=== PATIENT | female | born 1985 | race Caucasian/White ===

== ENCOUNTER → 2020-04-02 | Outpatient (CLI) | payer OTHER, SELFPAY ==
[2015-03-19 10:17] VITALS: BMI 33.9
[2020-04-06 21:25] LABS: HPV APTIMA, High Risk Negative (Negative); HPV Reflexed? YES, CHARGE PATIENT
== END | disposition home or self-care (01) ==
LOC: LABSPEC 15:39
PROVIDERS: Visit Provider Student in an Organized Health Care Education/Training Program
DX: Z12.4 Encounter for screening for malignant neoplasm of cervix (principal)
CPT/HCPCS: 87624; 88175; G0145

== ENCOUNTER → 2021-04-11 14:18 | Outpatient (CLI) | payer OTHER, SELFPAY ==
[2021-04-16 04:29] LABS: Chlamydia By Nucleic Acid AMP Negative (Negative)
[2021-04-16 14:48] LABS: Gonococcus By Nucleic Acid AMP Negative (Negative)
== END ==
PROVIDERS: Visit Provider Obstetrics & Gynecology
DX: Z34.81 Encounter for supervision of other normal pregnancy, first trimester (principal); Z11.3 Encounter for screening for infections with a predominantly sexual mode of transmission
CPT/HCPCS: 87491; 87591

== ENCOUNTER → 2021-05-02 14:32 | Outpatient (CLI) | payer OTHER, SELFPAY ==
[2021-05-02 15:36] LABS: Color, Urine Yellow (Yellow); Glucose, Dipstick Normal (Normal); Ketone-Dipstick 5 mg/dl (Negative); Leukocyte Esterase-Dipstick Negative /ul (Negative); Nitrite-Dipstick Negative (Negative); Occult Blood-Urine Negative /ul (Negative); Protein-Dipstick 15 mg/dl (Negative); Specific Gravity, Urine 1.025 (1.002-1.030); Urine Bilirubin Dipstick Negative (Negative); Urine Clarity Clear (Clear); Urine Urobilinogen 1 mg/dl (Normal)
[2021-05-02 15:38] LABS: Absolute Lymphocyte Count 2.68 X10^3/uL (0.83-4.51); Basophil# 0.04 X10^3/uL; Basophil% 0.4 % (0-1); Eosinophil# 0.13 X10^3/uL; Eosinophils% 1.2 % (0-5); Hemoglobin 14.3 g/dL (12.0-15.0); Lymphocyte # 2.68 X10^3/ul (0.83-4.51); Lymphocyte % 25.5 % (19-41); Mean Corpuscular Hgb 28.5 pg (27.0-32.0); Mean Corpuscular Volume 83.7 fL (81-99); Monocyte# 0.58 X10^3/uL; Monocyte% 5.5 % (0-10); NRBC Flagged by Analyzer 0 % (0-5); Neutrophil # 7.04 X10^3/uL (2.7-7.7); Platelet Count 269 K/mm3 (150-450); RBC Distribution Width CV 13.2 % (11.6-14.6); RBC Distribution Width SD 40.3 fl (35.1-43.9); Red Blood Count 5.02 M/mm3 (4.2-5.4); White Blood Count 10.5 K/mm3 (4.4-11.0)
[2021-05-02 16:22] LABS: Thyroid Stim Hormone (TSH) 0.79 uIU/mL (0.358-3.74)
[2021-05-03 08:11] LABS: HIV - WCH Non-Reactive (Nonreactive); Hepatitis B Surface Antigen Non-Reactive (Nonreactive); Hepatitis C Antibody Non-Reactive (Nonreactive); Rubella IgG Reactive (Nonreactive); Syphilis Antibodies Non-reactive; Vitamin D,25 Hydroxy 61.9 ng/mL
== END ==
PROVIDERS: Visit Provider Obstetrics & Gynecology
DX: Z34.81 Encounter for supervision of other normal pregnancy, first trimester (principal)
CPT/HCPCS: 36415; 81002; 82306; 84443; 85025; 86703; 86762; 86780; 86803; 87086; 87088; 87340

== ENCOUNTER → 2021-06-27 | Outpatient (CLI) | payer OTHER, SELFPAY ==
[2021-06-27 14:24] LABS: Thyroid Stim Hormone (TSH) 1.03 uIU/mL (0.358-3.74)
== END | disposition home or self-care (01) ==
LOC: LABSPEC 13:37
PROVIDERS: Visit Provider Student in an Organized Health Care Education/Training Program
DX: Z34.82 Encounter for supervision of other normal pregnancy, second trimester (principal); E03.9 Hypothyroidism, unspecified
CPT/HCPCS: 84439; 84443

== ENCOUNTER 2021-09-11 14:13 | Outpatient (CLI) | payer OTHER, SELFPAY ==
[2021-09-11 16:08] LABS: Hematocrit 34.4 % (37-47); Hemoglobin 11.3 g/dL (12.0-15.0); Mean Corp Hgb Conc 32.8 g/dL (32-36); Mean Corpuscular Hgb 27.6 pg (27.0-32.0); Mean Corpuscular Volume 84.1 fL (81-99); Platelet Count 272 K/mm3 (150-450); RBC Distribution Width CV 13.2 % (11.6-14.6); RBC Distribution Width SD 40.2 fl (35.1-43.9); Red Blood Count 4.09 M/mm3 (4.2-5.4); White Blood Count 9.1 K/mm3 (4.4-11.0)
[2021-09-11 16:32] LABS: Glucose Challenge Gest 1H 50g 145 mg/dL (70-140); Thyroid Stim Hormone (TSH) 0.72 uIU/mL (0.358-3.74)
== END 2021-09-11 23:59 | disposition home or self-care (01) ==
LOC: WOBLAB 14:15
PROVIDERS: Visit Provider Obstetrics & Gynecology
DX: Z34.82 Encounter for supervision of other normal pregnancy, second trimester (principal)
CPT/HCPCS: 36415; 82950; 84443; 85027

== ENCOUNTER → 2021-11-14 | Outpatient (CLI) | payer OTHER, SELFPAY | END | disposition home or self-care (01) | LOC: LABSPEC 16:20 | PROVIDERS: Visit Provider Obstetrics & Gynecology | DX: Z36.85 Encounter for antenatal screening for Streptococcus B (principal) | CPT/HCPCS: 87081 ==

== ENCOUNTER 2021-12-04 05:30 | Inpatient (IN) | payer OTHER, SELFPAY ==
--- NOTE | 2021-12-02 16:27 | PCM.HP.BLA ---
History and Physical Date of Admission: 12/04/21 ACOG ANTEPARTUM RECORD - HISTORY AND PHYSICAL (12/02/2021) Name: BETTY ALLAN History of this : This is a 35 year old [id number] presents at 39 wks + 0 days gestation for repeat with bilateral salpingectomy. 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 : 1985 Age: 35 Address: [address] [place] [address] Phone: H) [phone] (O) [phone] Insurance Carrier: [employer] [id number] Emergency Contact: BAILEY ALLAN/ [phone] ...................................................................... Final MARYELLEN: 12/11/21 By Ultrasound: 5 weeks 1 day PARITY: (G-Total Pregnancies P-Fullterm,Premature,Induced AB,Spont AB, Ectopics, Multiple,Living) MARYELLEN CONFIRMATION: By LMP: 03/26/20 Initial Exam: 12/11/21 By First Ultrasound Exam: 12/11/21 Final MARYELLEN: 12/11/21 OB PROBLEM LIST: AMA, declines genetic and carrier screening GDM 2nd and 3rd --1 hr PG 145 and declines 3 hour; presumed GDM; try diet control hypothyroidism Pumping/ planned rods/pins C3-lumbar region of back, scoliosis hx general anesthetic with initial C/S d/t this Takes Sertraline, EPDS today = 0 This will be her 4th -- Plans RCS with tubal ALLERGIES: ? antibiotic Hives Adhesive Tape Rash Latex Hives and/or rash NKDA No Known Allergies No Known Drug Allergies Shellfish Face, lips swelling Shellfish Derived Facial swelling Tomatoes Hives Tree nuts Hives Wheat Hives MEDICATIONS: sertraline 25 mg tablet One tablet by mouth daily Synthroid 25 mcg tablet One pill by mouth once a day Vitafol Gummies 3.33 mg iron-0.33 mg chewable tablet One by mouth three times a day Vitamin D2 1,250 mcg (50,000 unit) capsule One capsule by mouth weekly SOCIAL HISTORY: Smoking - used to smoke but quit and quit 10 y ago Alcohol Use - RARELY not while Diet - moderate, balanced diet Lifestyle - low stress lifestyle and Exercise - active 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 Illicit Drug Use - denies use of street drugs Sexual Activity - Residence - lives with Place of - [place], [place] Spouse-Sig Other Name - Bailey Allan Spouse-Sig Other Occupation - [employer] - marti dispatcher; 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 Spouse-Sig Other Phone No - [phone] cell Children Name(s) - Varsha Johnson [place] PRIOR DELIVERY HISTORY DEL DATE GEST LAB WT LB WT OZ TYPE ANES LABOR TX 02 Apr 03 39 0 8 3 C-Sec Spinal No Oct 30 39 0 8 9 C-Sec Spinal No Dec 24 39 0 8 3 C-Sec General No ANTEPARTUM FLOW CHART VISIT GE RTC FU F F WA U U DATE WK MD WKS HT PN HR M SS BP ED WT WA GL D EF ST __ ____ ___ __ __ ___ __ __ __ ___ __ __ __ ___ __ 11 November JMW 3 38 + + 124/72 205 ne ne November JMW 1 38 R de 118/76 1+ 208 - - Oct JMW 1 36 V + + 112/72 1+ 205 tr - cl 50 hi Oct JMW 1 35 + + 126/78 1+ 202 1+ - Sep JMW 2 32 + + 120/74 0 198 tr - Oct 17 JMW 2 31 + + 130/78 0 200 tr ne Sep 15 JMW 3 27 + + 118/70 0 199 - - Aug 08 JMW 4 20 + + 120/68 194 ne ne Jul 04 CM 4 + + 116/78 196 tr - 18 Jun 01 JMW 4 + ? 128/72 0 195 tr - 14 Apr 26 JMW 4 U+ ? 126/78 0 196 - - ANTEPARTUM NOTE(S): Nov 27 2021: C/O Headache, FM well, Consent signed Nov 20 2021: Doing Well Nov 14 2021: GBS, Declined LARC., Good FM Nov 07 2021: reactive NST, no bleeding Oct 17 2021: see note, Good FM Oct 10 2021: FBS OK; PPs all mildly elevated; diabetic ed Sep 11 2021: One Hr PG today Jul 25 2021: FM well, Nausea thinks it is from sinus drainage. Jun 27 2021: still dealing with am nausea Jun 06 2021: Occasional Nausea May 02 2021: Panel drawn today w/Vit D Level COMPREHENSIVE ANTEPARTUM NOTE(S): Nov 20 2021: Betty is here for a NST at 37 w 0 d. She reports that she woke up in a panic this morning and I just don't feel right. Decreased FM today. She also reportsthat for several weeks she has been itching mostly only at night; she states no rashes and that the areas that itch are bottoms of her feet, her calves, inner knees, and half of her thighs. She denies spotting/LoF/cramping. 1+ pitting e Nov 19 2021: H taken to OB. tkg Nov 14 2021: Betty is here for her PNV at 36 w 1 d. She states that she feels okay. She notes good FM. Betty denies spotting/LoF/cramping. 1+ pitting edema noted below knees. She denies visual changes, headaches. She has been having so much heartburn. Right upper quadrant discomfort continue intermittently; she states not any worse than last week. LARC declined, consent signed. She plans to have a Nov 07 2021: Betty is 35w1d here for PNV decreased FM 1+ edema in hands. C/O zigzag in her vision last night. Headache for 24hrs. Ran out of glucose testing strips [facility]nt [facility]. Will go buy more. [place] better after water and a bath. Has only felt baby move once today. She is on the NST now. BR Nov 07 2021: NST reactive, read per Dr. Khan. Several FM noted per Betty. AW Oct 17 2021: Betty is here for visit. She is doing well, no complaints or concerns. Reviewed FM, PTL, PROM. Encouraged Tdap vaccine. Blood sugars on phone for Dr Khan review. LMT Oct 10 2021: Betty had a PNV with Dr. Khan today, she had GDM, and at this time she is not on medication for same. Her FBS are all with range, but her 2 hr pp lunch and dinner are routinely in the 140's. He requests that RN speak with Betty about her diet, and see if any changes can be made to help bring her pp blood sugars back into expected range. Betty is to keep checking her blood sugars, then r Sep 11 2021: Betty is 27weeks. Good edema no swelling. States she has been getting headaches but feels better if she lies down. BR Jun 27 2021: Betty is here for visit. She relates that she is still sick every morning until noon. She has significant side effects from all meds and uncertain if she is willing to try anything that might make her feel drowsy all day. Could try Unisom 1/2 at hs? Labs today for thyroid. LMT Jun 27 2021: 16/1w visit. Nausea - persistent in mornings. Declines medications. Discussed seabands. AMA - recommend growth us 36w and weekly NSTs at 36w. Hypothyroidism - TSH/Free T4 today. Continue synthroid. F/u 4w anatomy and PNV. CM Jun 06 2021: Betty is here for her NOB visit, she will see Dr. Khan for a PNV after NOB. She is a 35 year old with an MARYELLEN of 12/11/2021, current GA is 13 w 1 d. Betty resides with her , Bailey, and their three children; all of her children were delivered by C/S. Betty plans to have a repeat C/S with BTL at [facility], and she states that she usually pumps and feeds the baby pumped breast milk, o May 02 2021: Betty here for fu from miscarriage. . Non smoker Denies pain and bleeding or other concerns since procedure. Medications and allergy update. PHQ-2 score of 0. May 02 2021: Betty is here for her NOB consent visit at 8 w 1 d. She reports nausea when she brushes her teeth and with sinus drainage. This is her 4th , she has two girls and one boy, all delivered by C/S. She plans a repeat C/S at [facility]. Past history updated. Betty is AMA, no other significant family history noted on Genetics Screening form. She declines carrier screening, and is undec REVIEW OF SYSTEMS: GENERAL - Denies fever, or chills SKIN - Denies rash, new skin lesions, or change in moles EYES - Denies blurred vision, or change in visual acuity EARS - Denies ear pain, or difficulty hearing NOSE - Denies nasal congestion, discharge, or bleeding MOUTH - Denies sore throat, or difficulty swallowing NECK - Denies pain or swelling RESPIRATORY - Denies shortness of breath, cough, wheezing CARDIOVASCULAR - Denies palpitations, chest pain, orthopnea, PND, peripheral edema, syncope or claudication GASTROINTESTINAL - Denies nausea, vomiting, diarrhea, constipation, Denies abdominal pain, melena and or bright red blood GENITOURINARY - Denies dysuria, frequency of urination, urgency, or hesitancy MUSCULOSKELETAL - Denies joint or muscle pain, or back pain NEUROLOGICAL - Denies localized numbness, weakness, or tingling PSYCHIATRIC - Denies depression, anxiety, substance abuse or suicide attempts ENDOCRINE - Denies heat or cold intolerance, weight loss or gain, increasing thirst HEMATO-IMMUNOLOGIC - Denies easy bruising, bleeding, oral ulcerations or recurrent infections GENETICS SCREENING: Age 35+ years: Yes Thalassemia: No Neural Tube Defect: No Down Syndrome: No STEPHIE-SACHS: No Sickle Cell Disease: No Hemophilia: No Musc. Dystrophy: No Cystic Fibrosis: No-declines screening [place] Chorea: No Mental Retardation: No Fragile X: No Other genetic: No Other defects: No SABs/still births: No Drugs since LMP: Yes, synthroid INFECTION HISTORY: High risk AIDS: No High risk Hepatitis: No Exposed to TB: No Exposed to Herpes: No Rash/viral illness since LMP: No History of STD: No MENSTRUAL HISTORY: *Menses Amount/Duration: 5 daysMenses Regularity: missed periodsBCP's at Conception: No* PAST SUMMARY: PARITY: 1. Total Pregnancies............ 4 2. Full Term Pregnancies........ 3 3. Premature.................... 0 4. Abortions - Induced.......... 0 5. Abortions - Spontaneous...... 0 6. Ectopics..................... 0 7. Multiple Births.............. 0 8. Living Children.............. 3 PAST #1: Date of :.................. 12/29/06 Gestation Weeks:................ 39 Length of labor(hours):......... 0 Sex:............................ F Weight-lbs:............... 8 Weight-oz:................ 3 Type of Delivery:............... C-Sect Type of Anesthesia:............. General Place of Delivery:.............. [facility] Treatment of Labor?:.... No Comment: PAST #2: Date of :.................. 10/27/12 Gestation Weeks:................ 39 Length of labor(hours):......... 0 Sex:............................ F Weight-lbs:............... 8 Weight-oz:................ 9 Type of Delivery:............... C-Sect Type of Anesthesia:............. Spinal Place of Delivery:.............. [facility] Treatment of Labor?:.... No Comment: [facility]. PAST #3: Date of :.................. 03/21/15 Gestation Weeks:................ 39 Length of labor(hours):......... 0 Sex:............................ M Weight-lbs:............... 8 Weight-oz:................ 3 Type of Delivery:............... C-Sect Type of Anesthesia:............. Spinal Place of Delivery:.............. [facility] Treatment of Labor?:.... No Comment: GDM PHYSICAL EXAMINATION General Appearence: 35 yo female in no acute distress Vital Signs: AF, VSS Heart: RRR without rubs or gallops Lungs: CTA x 2 Breasts: deferred Abdomen: gravid Pelvis: Cervix: Presentation: cephalic Station: Fetus: Size: AGA Movement: present Heart: present LAB TEST(S) ORDERED SINCE:03/16/21 06/27/2021 THYROID STIM HORMONE (TSH) 06/27/2021 T4 FREE DIRECT 05/04/2021 URINE CULTURE 05/03/2021 VITAMIN D,25 HYDROXY 05/03/2021 RUBELLA IGG 05/03/2021 L509.8000 05/03/2021 HIV - [facility] 05/03/2021 HEPATITIS C ANTIBODY 05/03/2021 HEPATITIS B SURFACE ANTIGEN 05/02/2021 URINALYSIS, ROUTINE (DIPSTICK) 05/02/2021 THYROID STIM HORMONE (TSH) 05/02/2021 T AND S-NO CHARGE W/PNP 05/02/2021 CBC W/DIFF, AUTOMATED 04/16/2021 CHLAMYDIA/GC WALESKA APTIMA 11/17/2021 RULE OUT BETA STREP (GRP. B) 09/11/2021 THYROID STIM HORMONE (TSH) 09/11/2021 GLUCOSE CHALLENGE GEST 1H 50G 09/11/2021 CBC-COMPLETE BLOOD CNT NO DIFF == ==== Order Observation Description Value Ref_Range A* Site == ==== RULE OUT BETA S NOTE LOVING THYROID STIM HO NOTE LOVING THYROID STIM HO TSH 0.72 uIU/mL 0.358-3.74 ML GLUCOSE CHALLEN NOTE LOVING GLUCOSE CHALLEN GLU GEST 50G 1H 145 mg/dL 70-140 H ML CBC-COMPLETE BL NOTE LOVING CBC-COMPLETE BL WBC 9.1 K/mm3 4.4-11.0 ML CBC-COMPLETE BL RBC 4.09 M/mm3 4.2-5.4 L ML CBC-COMPLETE BL HGB 11.3 g/dL 12.0-15.0 L ML CBC-COMPLETE BL HCT 34.4 37-47 L ML CBC-COMPLETE BL MCV 84.1 fL 81-99 ML CBC-COMPLETE BL MCH 27.6 pg 27.0-32.0 ML CBC-COMPLETE BL MCHC 32.8 g/dL 32-36 ML CBC-COMPLETE BL RDW CV 13.2 11.6-14.6 ML CBC-COMPLETE BL RDW SD 40.2 fl 35.1-43.9 ML CBC-COMPLETE BL PLT 272 K/mm3 150-450 ML CBC-COMPLETE BL MPV 10.0 fl 6.2-12.0 ML T4 FREE DIRECT NOTE LOVING T4 FREE DIRECT T4 FREE DIRECT 0.90 ng/dL 0.76-1.46 ML THYROID STIM HO NOTE LOVING THYROID STIM HO TSH 1.03 uIU/mL 0.358-3.74 ML URINE CULTURE NOTE LOVING HEPATITIS C ANT NOTE LOVING HEPATITIS C ANT HEPATITIS C AB Non-Reactive Nonreactive ML Non Reactive: < 0.8 Equivocal: >/= 0.8 to < 1.0 Reactive: >/= 1.0 The CDC recommends that a reactive/equivocal HCV antibody result be followed up by the HCV Nucleic Acid Amplification test ([id number]) HEPATITIS B TWYLA NOTE LOVING HEPATITIS B TWYLA HEP B SURF AG Non-Reactive Nonreactive ML HIV - [facility] NOTE LOVING HIV - [facility] HIV Non-Reactive Nonreactive ML L509.8000 NOTE LOVING L509.8000 SYPHILIS ABS Non-reactive ML RUBELLA IGG NOTE LOVING RUBELLA IGG RUBELLA IGG Reactive Nonreactive ML Antibody Results Interpretation of Immune Status Non Reactive Presumed Non-Immune Equivocal Equivocal Reactive Presumed Immune VITAMIN D,25 HY NOTE LOVING VITAMIN D,25 HY VITAMIN D 25-OH 61.9 ng/mL ML Vitamin D 25(OH) Status Range Deficiency <20 ng/mL (50nmol/L) Insufficiency 20 - 30 ng/mL (50 - 75 nmol/L) Sufficiency 30 - 100 ng/mL (75 - 250 nmol/L) Toxicity >100 ng/mL (>250 nmol/L) PN N [facility]~[address] [place], [address]~ T AND AB SCREEN GEL NEGATIVE ML THYROID STIM HO NOTE LOVING THYROID STIM HO TSH 0.79 uIU/mL 0.358-3.74 ML CBC W/DIFF, AUT NOTE LOVING CBC W/DIFF, AUT WBC 10.5 K/mm3 4.4-11.0 ML CBC W/DIFF, AUT RBC 5.02 M/mm3 4.2-5.4 ML CBC W/DIFF, AUT HGB 14.3 g/dL 12.0-15.0 ML CBC W/DIFF, AUT HCT 42.0 37-47 ML CBC W/DIFF, AUT MCV 83.7 fL 81-99 ML CBC W/DIFF, AUT MCH 28.5 pg 27.0-32.0 ML CBC W/DIFF, AUT MCHC 34.0 g/dL 32-36 ML CBC W/DIFF, AUT RDW CV 13.2 11.6-14.6 ML CBC W/DIFF, AUT RDW SD 40.3 fl 35.1-43.9 ML CBC W/DIFF, AUT PLT 269 K/mm3 150-450 ML CBC W/DIFF, AUT MPV 10.0 fl 6.2-12.0 ML CBC W/DIFF, AUT NEUT% 67.0 47-70 ML CBC W/DIFF, AUT LY% 25.5 19-41 ML CBC W/DIFF, AUT MONO% 5.5 0-10 ML CBC W/DIFF, AUT EO% 1.2 0-5 ML CBC W/DIFF, AUT BASO% 0.4 0-1 ML CBC W/DIFF, AUT IG% 0.400 0.0-0.9 ML IG% - Immature Granulocytes (promyelocytes, myelocytes and metamyelocytes) > 1% indicates that a LEFT SHIFT is Present. CBC W/DIFF, AUT ABSOLUTE NEUT 7.0 X10 3/uL 2.0-7.7 ML CBC W/DIFF, AUT ABSOLUTE LYMPH 2.68 X10 3/uL 0.83-4.51 ML CBC W/DIFF, AUT NUCLEATED RBC 0 0-5 ML URINALYSIS, ROU NOTE LOVING URINALYSIS, ROU COLOR Yellow Yellow ML URINALYSIS, ROU URINE CLARITY Clear Clear ML URINALYSIS, ROU GLUCOSE, UR Normal mg/dl Normal ML URINALYSIS, ROU BILIRUBIN URINE Negative mg/dL Negative ML URINALYSIS, ROU KETONE UR 5 mg/dl Negative A ML URINALYSIS, ROU SP.GR. DIPSTX 1.025 1.002-1.030 ML URINALYSIS, ROU PH UR 5.0 5.0 - 8.0 ML URINALYSIS, ROU PROT DIPSTX 15 mg/dl Negative A ML URINALYSIS, ROU UROBILI 1 mg/dl Normal A ML URINALYSIS, ROU NITRITE Negative Negative ML URINALYSIS, ROU OCCULT BLOOD-UR Negative /ul Negative ML URINALYSIS, ROU LEUK ESTERASE Negative /ul Negative ML CHLAMYDIA/GC NA NOTE LOVING CHLAMYDIA/GC NA CHLAMY,NUC ACID Negative Negative LCI CHLAMYDIA/GC NA GC BY NUC ACID Negative Negative LCI Performed at: =[address] [place] [id number] Inner Tube Cutter: Tamiko Deal MD, Phone: [phone] Group B Beta Streptococcus is not isolated. Mixed Gram Positive Organisms [place] Count 1000-10,000 MIXC Mixed contaminants. Submit a new specimen if indicated. O POSITIVE == ==== Impression /Plan: 39 wks + 0 days gestation for repeat with bilateral salpingectomy. Preparations in progress for delivery.
[2021-12-04] VITALS (21 sets, daily range): BP systolic 105–152; BP diastolic 55–89; PULSE 64–108; RESP 12–24; TEMP 35.8–36.6; O2SAT 94–100; BMI 36.8
--- NOTE | 2021-12-04 | FALS_PTH ---
PATIENT: BETTY HERMOSILLO LOC: [facility] U#:[id number] AGE/SX: 35/F ROOM: [facility] RE12/04/[address]: Dr. Burton Khan MD : 1985 BED: 1 DIS: 12/05/2021 SPEC #: [id number] RECD: 12/04/21 12:56 STATUS: HUBERT DAVISBharati #: [id number] MARIN: 12/04/21 00:[address]: Burton Khan DEPT: SURGICAL PATHOLOGY RECD BY: Catracho Hager Tissues: Fallopian tube Procedures: Surgery Specimen Level II HEADER OPERATION: Tubal ligation PRE-OP DIAGNOSIS: Sterilization TISSUE SUBMITTED: Fallopian tubes, tie on left tube MICROSCOPIC DIAGNOSIS Bilateral fallopian tubes, salpingectomy: Bilateral fallopian tubes, no pathologic diagnosis. VICKIE:carter 12/05/2021 MICROSCOPIC DESCRIPTION Slides are reviewed. GROSS DESCRIPTION Received in fixative is one container labeled with the patient's name and designated bilateral fallopian tubes, tie on left. The specimen consists of bilateral fallopian tubes including fimbrial ends. The right fallopian tube measures 9 cm in length and 1 cm in diameter and the left fallopian tube measures 6 cm in length and 1.2 cm in diameter. Sections reveal unremarkable cut surfaces. Mail Service Coordinator sections are submitted in two cassettes as follows: 1 ? right fallopian tube, 2 ? left fallopian tube. / SJ:rg 12/04/2021 TC:4 CPT: 43676 x2
[2021-12-04] MEDS: Lactated Ringers 1,000 ML 999 ML IV (05:50)
[2021-12-04 06:07] LABS: Absolute Lymphocyte Count 2.85 X10^3/uL (0.83-4.51); Basophil# 0.04 X10^3/uL; Basophil% 0.4 % (0-1); Eosinophils% 0.9 % (0-5); Hematocrit 32.2 % (37-47); Hemoglobin 9.8 g/dL (12.0-15.0); Lymphocyte # 2.85 X10^3/ul (0.83-4.51); Lymphocyte % 26.7 % (19-41); Mean Corp Hgb Conc 30.4 g/dL (32-36); Mean Corpuscular Hgb 23.1 pg (27.0-32.0); Mean Corpuscular Volume 75.9 fL (81-99); Mean Platelet Vol. 10.9 fl (6.2-12.0); Monocyte# 0.64 X10^3/uL; NRBC Flagged by Analyzer 0 % (0-5); Neutrophil # 7.01 X10^3/uL (2.7-7.7); Neutrophil % 65.5 % (47-70); Platelet Count 264 K/mm3 (150-450); RBC Distribution Width CV 15.1 % (11.6-14.6); RBC Distribution Width SD 41.3 fl (35.1-43.9); Red Blood Count 4.24 M/mm3 (4.2-5.4); White Blood Count 10.7 K/mm3 (4.4-11.0)
[2021-12-04] MEDS: Acetaminophen 500 MG Tablet 1000 MG PO ×3 (06:10→20:23)
[2021-12-04 06:16] LABS: Bedside Glucose 98 mg/dL (74-106)
[2021-12-04] MEDS: Lactated Ringers 1,000 ML 150 ML IV (06:52)
[2021-12-04] MEDS: Sodium Citrate/Citric Acid 30 ML UDC PO (07:17)
--- NOTE | 2021-12-04 07:33 | EX.PCM.OBRPT ---
Details Operative Information Date of Procedure: 12/04/21 Pre-Operative Diagnosis: Prior Section, Desires Permanent Sterilization Post-Operative Diagnosis: Prior Section, Desires Permanent Sterilization Classification: Scheduled Procedure Type: low transverse (and bilateral salpingectomy) car blocker #1: Jose Armando Garcia Type of Anesthesia: Spinal (With Duramorph) Anesthesiologist: Britney Valenzuela Antibiotic Given: Ancef 2 grams IV x1 Drain: Loera to straight drain Estimated Blood Loss: 500 cc Fluids Replaced: Crystalloid Findings Description of Procedure: Surgeon: Burton Khan MD, FACOG Procedure: Repeat Low Transverse Cervical Caesarean Section And Bilateral Salpingectomy Findings: Viable female infant with Apgars of 8/9 in occiput anterior presentation with clear amniotic fluid and normal three-vessel placenta. Indication: This is a 35-year-old who presents for her fourth at 39 weeks gestation. care has otherwise been uneventful. The patient has been counseled regarding the risk and indications of this procedure including the possibility of bleeding infection and injury to surrounding structures such as bowel bladder. She also understands the permanent nature of a salpingectomy, the availability of other nonpermanent control options, and the failure rate of 1 to 2%. All questions were answered. Procedure: Patient was taken to the operating room where after spinal anesthesia was placed, the patient was prepped and draped in usual sterile fashion and a Loera catheter was placed. The abdomen was entered through the patient's prior Pfannenstiel incision and peritoneum was entered bluntly. After developing a bladder flap on the lower uterine segment a low transverse incision was made on the uterus and head was easily delivered onto the operative field the nose mouth and oropharynx were bulb suctioned. Subsequently a viable female was born with Apgars of 8/9. The was noted to cry move all extremities vigorously on the operative field. The umbilical cord was doubly clamped and ligated and infant handed to the nursery personnel who were present for the delivery. Placenta was delivered and noted to be 3 vessels and normal. Uterus was exteriorized and remaining placental tissue was removed. The uterus was then closed in 2 layers first with running locked 0 Vicryl suture followed by a second imbricating layer with 0 Vicryl suture. 0 Vicryl suture was then used in a horizontal mattress interrupted fashion to affect final hemostasis of the uterine incision line. Normal fallopian tubes and ovaries were visualized and fallopian tubes were then removed using a LigaSure device to the uterus. The uterus was returned to the pelvis. Hemostasis was noted and rectus abdominis muscles were reapproximated in the midline with interrupted Number 0 Vicryl suture in a horizontal mattress fashion. Fascia was closed with running Number 1 PDS Strata fix suture. Subcutaneous tissue was irrigated with copious amounts of saline solution and then closed with running 3-0 Vicryl suture. Skin was closed with 4-0 monocryl suture in a running subcuticular fashion. Steri strips and a Mepilex dressing were placed across the incision. The patient tolerated the procedure well and was taken to the recovery room in satisfactory condition. Sponge, needle, and instrument counts were all reportedly correct. EBL was less than 500 cc. Ancef 2 gms IV was given prior to the procedure. Spicemen to Pathology: Bilateral fallopian tubes Complications: None Presentation: Positive for Vertex Amniotic Fluid Description: Clear Placental Delivery Description: Spontaneous Placenta Disposition: [facility] Specimen(s) Sent to Pathology: None Cord Vessel Description: 3 Vessels Cord Entanglement: None Infant A Gender: Female (1 minute): 8 (5 minute): 9 Complications Risks of Surgery Discussed w/Patient: Bleeding, Infection, Failure Rate of 1 to 2%, Injury to surrounding structure(s) including bowel and bladder and Availability of other non-permanent control options Complications: None
[2021-12-04] MEDS: Cefazolin 2 GM in 0.9% Normal Saline 100 ML IV (07:45)
[2021-12-04] MEDS: Oxytocin 30 units/NS 500 ml 30 UNITS/500 ML IV.SOLN 167 UNITS IV (08:50)
[2021-12-04] MEDS: Levothyroxine 25 MCG TABLET PO (09:16)
[2021-12-04] MEDS: Ketorolac 30 MG/ML Syringe IV (11:44)
[2021-12-04] MEDS: proCHLORPERazine 10 MG/2 ML Vial IV (11:48)
[2021-12-04] MEDS: Sertraline 50 MG Tablet PO (11:50)
[2021-12-04] MEDS: Lactated Ringers 1,000 ML 100 ML IV (14:00)
[2021-12-04] MEDS: Cefazolin 1 GM/50 ML BAG IV ×2 (16:40→23:30)
[2021-12-04] MEDS: Lactated Ringers 500 ML 999 ML IV (16:42)
[2021-12-04] MEDS: DiphenhydrAMINE 50 MG/ML Syringe 25 MG IV (16:45)
[2021-12-05] MEDS: Acetaminophen 500 MG Tablet 1000 MG PO ×2 (01:41→09:12)
[2021-12-05 04:03] VITALS: BP 120/74; PULSE 64; RESP 16; TEMP 36.2; O2SAT 97
[2021-12-05] MEDS: Levothyroxine 25 MCG TABLET PO (06:07)
[2021-12-05] MEDS: Sertraline 50 MG Tablet PO (06:07)
[2021-12-05 06:10] LABS: Bedside Glucose 90 mg/dL (74-106)
[2021-12-05 06:10] LABS: Hematocrit 27.2 % (37-47); Hemoglobin 8.3 g/dL (12.0-15.0); Mean Corp Hgb Conc 30.5 g/dL (32-36); Mean Corpuscular Hgb 23.2 pg (27.0-32.0); Mean Corpuscular Volume 76.2 fL (81-99); Mean Platelet Vol. 10.5 fl (6.2-12.0); Platelet Count 229 K/mm3 (150-450); RBC Distribution Width CV 15.3 % (11.6-14.6); RBC Distribution Width SD 42.3 fl (35.1-43.9); Red Blood Count 3.57 M/mm3 (4.2-5.4); White Blood Count 12.4 K/mm3 (4.4-11.0)
[2021-12-05 09:22] VITALS: BP 119/84; PULSE 91; RESP 16; TEMP 36.4
--- NOTE | 2021-12-05 09:31 | PCM.PN.OB ---
Subjective Subjective Patient without complaints. Breast-feeding going well. Minimal vaginal bleeding and pain well controlled with Toradol and Tylenol. Wants to go home later today if baby is able to go. Denies flatus yet but lots of rumbling. Objective Data Objective Data Wound is clean, dry, intact covered with Mepilex dressing. Good urine output. Hemoglobin okay. Vital Signs: Vital Signs Temp Pulse Resp BP Pulse Ox 97.6 F L 91 16 119/84 H 97 12/05/21 09:22 12/05/21 09:22 12/05/21 09:22 12/05/21 09:12/05/21 04:03 Oxygen Delivery Method Room Air Weight: 207 lb 14.334 oz Body Mass Index (BMI) 36.8 Intake & Output: Intake and Output for Last 24 Hours 12/03/21 12/04/21 12/05/21 23:59 23:59 23:59 Intake Total 3317.5 / 3367.5 2049 / 2049 Output Total 705 / 705 1600 / 1600 Balance 2612.5 / 2662.5 450 / 450 Lab / Micro Data Result Diagrams: 12/05/21 06:00 Labs: Laboratory Results - last 24 hr 12/05/21 05:57: POC Glucose 90 12/05/21 06:00: WBC 12.4 H, RBC 3.57 L, Hgb 8.3 L, Hct 27.2 L, MCV 76.2 L, MCH 23.2 L, MCHC 30.5 L, RDW Std Deviation 42.3, RDW Coeff of Ramiro 15.3 H, Plt Count 229, MPV 10.5 Micro: Microbiology 12/04/21 05:55 Nasal Secretion SARS-CoV-2 Antigen (Rapid) - Final Assessment & Plan (1) Delivery by section of full-term infant: PLAN: Doing well postoperative day #1 status post repeat and bilateral salpingectomy. No orthostatic symptoms but encourage patient to resume iron orally at home. Will discharge to home with routine instructions.
--- NOTE | 2021-12-05 09:34 | PCM.DC ---
Discharge Instructions Diet Discharge Diet: No restrictions Activity May resume sexual activity in: 4-6 weeks Lifting Restrictions: 20 pounds Dressing / Incision Call your doctor if your incision/area has: Continuous Slow Oozing, Sudden Increased Bleeding, Increased Pain/ Swelling, Increased Redness and Foul Smelling Discharge Call your doctor if you observe: Fever of 101 or Higher, Inability to urinate, Inability to have a bowel movement and Using more than 1 pad per hour Follow Up Care Please Follow Up With: Burton Khan MD When: Call [phone] for appointment to be seen in 2 weeks. Test Results: Test results from this visit will be discussed in further detail at your follow-up appointment, if applicable. Discharge Plan Admission Admit Date/Time: 12/04/21 05:30 Primary Reason for Your Visit: Repeat and Tubal Attending Provider: Burton Khan Discharge Orders/Prescriptions Prescriptions: New oxycodone 5 mg capsule 5 mg PO Q6H PRN (Reason: pain (scale score 7-10)) 7 Days Qty: 14 RF: 0 docusate sodium 100 mg tablet 100 mg PO BID PRN (Reason: constipation) Qty: 60 RF: 1 Continued levothyroxine 25 MCG tablet 25 mcg PO DAILY RF: 0 Prenatabs FA 1 TABLET tablet 1 tab PO DAILY RF: 0 sertraline 50 mg tablet 50 mg RF: 0 omeprazole magnesium [Prilosec OTC] 20 mg Tablet,Delayed Release (Dr/Ec) 20 mg PO BID RF: 0 Disposition Disposition (needs filled in before D/C Order can be placed): Home, Self Care
[2021-12-06 09:41] LABS: Pathology Specimen OB SEE PATHOLOGY REPORT
== END 2021-12-05 12:30 | disposition home or self-care (01) | DRG 785 ==
PROVIDERS: Admitting Provider Obstetrics & Gynecology; Visit Provider Obstetrics & Gynecology
PROC: 0UT70ZZ Resection of Bilateral Fallopian Tubes, Open Approach (ICD-10-PCS; CPT 59514; principal; 2021-12-04 07:15)
DX: O34.219 Maternal care for unspecified type scar from previous cesarean delivery (principal); E03.9 Hypothyroidism, unspecified; Z30.2 Encounter for sterilization; Z37.0 Single live birth; Z3A.39 39 weeks gestation of pregnancy; Z87.891 Personal history of nicotine dependence; O99.284 Endocrine, nutritional and metabolic diseases complicating childbirth; O24.420 Gestational diabetes mellitus in childbirth, diet controlled
CPT/HCPCS: 59050; 82962; 85025; 85027; 86850; 86900; 86901; 87426; 88302; 99218; 99251; J7120; G0378; G0463; J2405